=== PATIENT | male | born 1940 | race Caucasian/White ===

== ENCOUNTER 2017-10-29 19:41 | Outpatient (REF) | payer MEDICARE, SELFPAY ==
[2017-10-29 21:08] LABS: Anion Gap 5.6 mmol/L (3-11); BUN 18 mg/dL (7-18); CO2 29.4 mmol/L (21.0-32.0); CREATININE 1.28 mg/dL (0.70-1.30); Calcium 8.4 mg/dL (8.5-10.1); Chloride 105 mmol/L (98-107); Cholesterol 197 mg/dL (50-200); Estimated GFR 54.21 (mL/min/1.73m2); Glucose 95 mg/dL (70-100); HDL Cholesterol 33 mg/dL (40-60); LDL CHOLESTEROL 142 mg/dL (<100); Sodium 140 mmol/L (136-145); Triglyceride 204 mg/dL (30-150)
== END 2017-10-29 20:01 ==
LOC: NCHCN 19:41
PROVIDERS: PCP Family Medicine; Visit Provider Family Medicine
DX: E78.5 Hyperlipidemia, unspecified (principal); I10 Essential (primary) hypertension
CPT/HCPCS: 80048; 80061; 83721

== ENCOUNTER 2018-04-29 10:19 | Outpatient (REF) | payer MEDICARE, SELFPAY ==
[2018-04-29 19:25] LABS: Anion Gap 9.5 mmol/L (3-11); BUN 18 mg/dL (7-18); CO2 26.5 mmol/L (21.0-32.0); CREATININE 1.19 mg/dL (0.70-1.30); Calcium 8.9 mg/dL (8.5-10.1); Chloride 104 mmol/L (98-107); Cholesterol 208 mg/dL (50-200); Estimated GFR 58.97 (mL/min/1.73m2); Glucose 97 mg/dL (70-100); HDL Cholesterol 35 mg/dL (40-60); LDL CHOLESTEROL 148 mg/dL (<100); Potassium 4.4 mmol/L (3.5-5.1); Sodium 140 mmol/L (136-145); Triglyceride 167 mg/dL (30-150)
== END 2018-04-29 10:39 ==
LOC: NCHCN 10:19
PROVIDERS: PCP Family Medicine; Visit Provider Family Medicine
DX: E78.5 Hyperlipidemia, unspecified (principal); I10 Essential (primary) hypertension
CPT/HCPCS: 80048; 80061; 83721

== ENCOUNTER 2019-04-04 11:22 | Outpatient (REF) | payer MEDICARE, SELFPAY ==
[2019-04-04 20:52] LABS: ALT 27 U/L (16-63); AST 17 U/L (15-37); Albumin 4.2 g/dL (3.4-5.0); Alkaline Phosphatase 87 U/L (46-116); Anion Gap 10.4 mmol/L (3-11); BUN 16 mg/dL (7-18); Bilirubin, Total 0.7 mg/dL (0.2-1.0); CO2 25.6 mmol/L (21.0-32.0); CREATININE 1.14 mg/dL (0.70-1.30); Calcium 9.1 mg/dL (8.5-10.1); Calculated LDL 147 mg/dL (<100); Chloride 104 mmol/L (98-107); Cholesterol 219 mg/dL (<200); Glucose 97 mg/dL (74-106); HDL Cholesterol 34 mg/dL (40-60); Sodium 140 mmol/L (136-145); Total Protein 7.5 g/dL (6.4-8.2); Triglyceride 192 mg/dL (<150)
[2019-04-06 09:34] LABS: PSA, Screening 2.1 ng/mL (0.0-6.5)
== END 2019-04-04 11:42 ==
LOC: NCHCN 11:22
PROVIDERS: PCP Family Medicine; Visit Provider Family Medicine
DX: E78.5 Hyperlipidemia, unspecified (principal); I10 Essential (primary) hypertension; Z12.5 Encounter for screening for malignant neoplasm of prostate
CPT/HCPCS: 80053; 80061; 84153

== ENCOUNTER 2020-05-07 18:30 | Outpatient (REF) | payer MEDICARE, SELFPAY ==
[2020-05-07 19:17] LABS: HCT 42.7 % (40.0-50.0); HGB 14.5 g/dL (13.5-17.5); MCH 30.8 pg (27.0-33.0); MCV 90.7 fL (80-95); MPV 12.3 fL (8.0-11.0); Platelet Count 225 10^3/uL (130-400); RBC 4.71 10^6/uL (4.36-5.78); RDW 13.7 % (11.8-14.1); RDW-SD 45.7 fL; WBC 7.73 10^3/uL (4.4-10.8)
[2020-05-07 19:55] LABS: ALT 31 U/L (16-63); AST 20 U/L (15-37); Albumin 4.2 g/dL (3.4-5.0); Alkaline Phosphatase 76 U/L (46-116); Anion Gap 11.7 mmol/L (3-11); BUN 18 mg/dL (7-18); Bilirubin, Total 0.8 mg/dL (0.2-1.0); CO2 26.3 mmol/L (21.0-32.0); CREATININE 1.2 mg/dL (0.70-1.30); Calculated LDL 129 mg/dL (<100); Chloride 104 mmol/L (98-107); Cholesterol 200 mg/dL (<200); Estimated GFR 58.11 (mL/min/1.73m2); Glucose 83 mg/dL (74-106); HDL Cholesterol 34 mg/dL (40-60); Potassium 4.5 mmol/L (3.5-5.1); Sodium 142 mmol/L (136-145); Total Protein 7.8 g/dL (6.4-8.2); Triglyceride 186 mg/dL (<150)
[2020-05-08 18:35] LABS: PSA, Screening 3.1 ng/mL (0.0-6.5)
== END 2020-05-07 18:31 | disposition home or self-care (01) ==
LOC: NCHCN 18:30
PROVIDERS: PCP Family Medicine; Visit Provider Family Medicine
DX: I10 Essential (primary) hypertension (principal); E78.5 Hyperlipidemia, unspecified; Z12.5 Encounter for screening for malignant neoplasm of prostate
CPT/HCPCS: 80053; 80061; 84153; 85027

== ENCOUNTER 2021-05-30 11:31 | Outpatient (REF) | payer MEDICARE, SELFPAY ==
[2021-05-30 20:03] LABS: Hemoglobin A1C 5.9 % (<5.7)
[2021-05-30 20:24] LABS: ALT 23 U/L (16-63); AST 18 U/L (15-37); Albumin 4.2 g/dL (3.4-5.0); Alkaline Phosphatase 90 U/L (46-116); Anion Gap 5.2 mmol/L (3-11); BUN 22 mg/dL (7-18); Bilirubin, Total 0.7 mg/dL (0.2-1.0); CO2 29.8 mmol/L (21.0-32.0); CREATININE 1.3 mg/dL (0.70-1.30); Calcium 9.4 mg/dL (8.5-10.1); Calculated LDL 131 mg/dL (<100); Chloride 105 mmol/L (98-107); Cholesterol 201 mg/dL (<200); Estimated GFR 52.85 (mL/min/1.73m2); Glucose 107 mg/dL (74-106); HDL Cholesterol 39 mg/dL (40-60); Potassium 5.4 mmol/L (3.5-5.1); Sodium 140 mmol/L (136-145); Total Protein 7.6 g/dL (6.4-8.2); Triglyceride 157 mg/dL (<150)
[2021-05-30 21:14] LABS: Vitamin B12 323 pg/mL (193-986)
[2021-06-02 09:51] LABS: PSA, Screening 4.3 ng/mL (<=6.5)
== END 2021-05-30 11:32 | disposition home or self-care (01) ==
LOC: NCHCN 11:31
PROVIDERS: PCP Family Medicine; Visit Provider Family Medicine
DX: Z12.5 Encounter for screening for malignant neoplasm of prostate (principal); Z13.220 Encounter for screening for lipoid disorders
CPT/HCPCS: 80053; 80061; 84153; 82607; 83036; 84443

== ENCOUNTER 2021-07-23 08:51 | Outpatient (REF) | payer MEDICARE, SELFPAY ==
[2021-07-23 15:34] LABS: AST 26 U/L (15-37); Calculated LDL 59 mg/dL (<100); Cholesterol 116 mg/dL (<200); HDL Cholesterol 41 mg/dL (40-60); Triglyceride 82 mg/dL (<150)
[2021-07-23 15:51] LABS: Creatine Kinase 258 U/L (39-308)
== END 2021-07-23 08:52 | disposition home or self-care (01) ==
LOC: NCHCN 08:51
PROVIDERS: PCP Family Medicine; Visit Provider Family Medicine
DX: E78.5 Hyperlipidemia, unspecified (principal)
CPT/HCPCS: 80061; 82550; 84450

== ENCOUNTER 2021-12-15 01:39 | Outpatient (CLI) | payer MEDICARE, SELFPAY ==
--- NOTE | 2021-12-15 09:15 | DI.NM_ITS ---
APPROVED REPORT Exam: Exercise Treadmill Patient Location: Out-Patient Room/Bed: Stress Nurse: Arelis Martinez RN Ordering Provider:ADAM WHATLEY, Contact Number: [phone] BMI: 35.94 Baseline Rhythm: Sinus Rhythm Indications: EXERTIONAL CP Medical History Medical History: HTN, HLD, Obesity Cardiac Medications: Losartan, Atorvastatin Allergies: Lisinopril Cardiac Risk Factors: HTN, HTN, Obesity Previous Cardiac Procedures: None Pretest Chest Pain Characteristics: No chest pain Exercise History: Physically active Physical Disabilities: None Lung Sounds: Clear to auscultation Heart Sounds: Regular Stress Test Details Test: Exercise stress testing was performed using a Gavino protocol. Nuclear Acquisition: Rest Tc-99m/Stress Tc-99m 1 day Rest Isotope: Tc-99m Sestamibi. Dose: 11.0 Date: 12/15/2021 Injection Time: 0930 Stress Isotope: Tc-99m Sestamibi. Dose: 37.0 Date: 12/15/2021 Injection Time: 1110 HR Resting HR Supine: 60 bpm Max Heart Rate (APMHR): 137.496644 bpm Resting HR Standin bpm Target HR (85% APMHR): 116.912224 bpm Max HR Achieved: 125 bpm % of APMHR: 91.24 Recovery HR: 73 bpm HR response to stress: Normal HR response to stress BP Resting BP Supine: 178/90 mmHg Resting BP Standin/82 mmHg Max BP: 208/98 mmHg Recovery BP: 180/88 mmHg BP response to stress: Normal blood pressure response to stress. Comment: Hypertensive baseline. ECG Resting ECG: Sinus Rhythm Ectopy: occasional PVC Comment: diffuse T wave inversions, aVL upright. Stress ECG: Sinus Tachycardia ST Change: No significant ST segment changes noted Arrhythmia: occasional PVC Comment: T wave inversions now upright. Lead aVL inverted. Recovery ECG: Sinus Rhythm Recovery ST Change: Downsloping ST depression Lead(s): I, II, III, aVF, V4, V5, V6 Recovery ST Deviation: 2.5 mm Recovery Arrhythmia: occasional PVC Comment: T waves returning near baseline 15 minutes into recovery. Clinical Reason for Termination: Fatigue, Dyspnea Stress Symptoms: Dyspnea Exercise duration: 3 min00 sec Highest Stage Reached: Stage 1: 1.7 mph at 10% grade. Exercise capacity: 4.64 METs Aquino Treadmill Score: 2 Rate Pressure Product: [id number] Stress ECG Conclusion 1. Resting electrocardiogram showed ST-T abnormalities 2. Patient exercised on the Gavino protocol and completed a workload of 4.64 METS, stopping due to paul rtness of breath 3. Resting hypertension. Normal hemodynamic response to exercise. Patient achieved 91% of predicted heart rate for age 4. The electrocardiographic portion of the test was consistent with myocardial ischemia 5. There were occasional premature ventricular contractions 6. See MPI report Aquino Treadmill Score is 2 which is Moderate risk. Stress Test Summary STAGE Time (mins) Speed (mph) Grade (%) HR BP SpO2 SYMPTOMS METS Supine 60 178/90 Standing 64 180/82 1 3 1.7 10 124 96 4.5 1 min recovery 106 158/80 96 3 min recovery 72 208/98 6 min recovery 75 202/102 9 min recovery 73 200/102 12 min recovery 73 188/90 73 180/88 MPI Conclusion Myocardial perfusion is abnormal. There is an anteroapical area of ischemia, moderate in size EF 40%. [place] is hypokinetic Radiologist Interpretation Radiologist agrees with [employer] Consulting Director's Interpretation. Radiologist Interpretation by: Fabi Graf MD Interpretation Date/Time: 12/15/2021 17:01:20
== END 2021-12-15 01:59 ==
LOC: DI 01:42
PROVIDERS: PCP Family Medicine; Visit Provider Family Medicine
DX: R07.89 Other chest pain (principal)
CPT/HCPCS: 78452; 93016; 93018; 93017

== ENCOUNTER 2022-03-17 13:59 | Outpatient (RCR) | payer MEDICARE, SELFPAY | END 2022-03-17 23:59 | disposition home or self-care (01) | LOC: CR 13:59 | PROVIDERS: PCP Family Medicine; Visit Provider Internal Medicine Cardiovascular Disease ==

== ENCOUNTER 2022-05-15 10:24 | Outpatient (RCR) | payer MEDICARE, SELFPAY | END 2022-05-15 23:59 | disposition home or self-care (01) | LOC: CR 10:24 | PROVIDERS: PCP Family Medicine; Visit Provider Internal Medicine Cardiovascular Disease | DX: I25.10 Atherosclerotic heart disease of native coronary artery without angina pectoris (principal); Z95.1 Presence of aortocoronary bypass graft | CPT/HCPCS: S9472 ==

== ENCOUNTER 2022-06-02 16:58 | Outpatient (REF) | payer MEDICARE, SELFPAY ==
[2022-06-02 16:04] LABS: HCT 44.7 % (40.0-50.0); HGB 14.7 g/dL (13.5-17.5)
[2022-06-02 16:16] LABS: ALT 23 U/L (16-63); AST 17 U/L (15-37); Albumin 4.1 g/dL (3.4-5.0); Alkaline Phosphatase 92 U/L (46-116); BUN 24 mg/dL (7-18); Bilirubin, Total 0.8 mg/dL (0.2-1.0); CREATININE 1.4 mg/dL (0.70-1.30); Calcium 9.7 mg/dL (8.5-10.1); Chloride 106 mmol/L (98-107); Creatine Kinase 103 U/L (39-308); Estimated GFR 49.87 (mL/min/1.73m2); Glucose 96 mg/dL (74-106); Potassium 5.6 mmol/L (3.5-5.1); Sodium 141 mmol/L (136-145); Total Protein 7.5 g/dL (6.4-8.2)
[2022-06-02 22:46] LABS: PSA, Screening 4.5 ng/mL (<=6.5)
== END 2022-06-02 16:59 | disposition home or self-care (01) ==
LOC: NCHCN 16:58
PROVIDERS: PCP Family Medicine; Visit Provider Family Medicine
DX: R73.03 Prediabetes (principal); I10 Essential (primary) hypertension; E78.5 Hyperlipidemia, unspecified; Z95.1 Presence of aortocoronary bypass graft; Z12.5 Encounter for screening for malignant neoplasm of prostate
CPT/HCPCS: 80053; 82550; 84153; 83036; 85014; 85018

== ENCOUNTER 2022-06-12 10:47 | Outpatient (RCR) | payer MEDICARE, SELFPAY | END 2022-06-14 23:59 | disposition home or self-care (01) | LOC: CR 10:47 | PROVIDERS: PCP Family Medicine; Visit Provider Internal Medicine Cardiovascular Disease | DX: I25.10 Atherosclerotic heart disease of native coronary artery without angina pectoris (principal); Z95.1 Presence of aortocoronary bypass graft; Z51.89 Encounter for other specified aftercare | CPT/HCPCS: S9472 ==

== ENCOUNTER 2022-07-15 09:41 | Outpatient (RCR) | payer MEDICARE, SELFPAY | END 2022-07-15 23:59 | disposition home or self-care (01) | LOC: CR 09:41 | PROVIDERS: PCP Family Medicine; Visit Provider Internal Medicine Cardiovascular Disease | DX: I25.10 Atherosclerotic heart disease of native coronary artery without angina pectoris (principal); Z95.1 Presence of aortocoronary bypass graft; Z51.89 Encounter for other specified aftercare | CPT/HCPCS: S9472 ==

== ENCOUNTER 2022-08-14 11:31 | Outpatient (RCR) | payer MEDICARE, SELFPAY | END 2022-08-14 23:59 | disposition home or self-care (01) | LOC: CR 11:31 | PROVIDERS: PCP Family Medicine; Visit Provider Internal Medicine Cardiovascular Disease | DX: I25.10 Atherosclerotic heart disease of native coronary artery without angina pectoris (principal); Z51.89 Encounter for other specified aftercare; Z95.1 Presence of aortocoronary bypass graft | CPT/HCPCS: S9472 ==

== ENCOUNTER 2022-09-11 10:48 | Outpatient (RCR) | payer SELFPAY ==
[2022-08-19 14:30] VITALS: BP 176/72; PULSE 58
[2022-08-21 11:16] VITALS: BP 178/66; PULSE 60
[2022-08-28 14:18] VITALS: BP 153/63; PULSE 61
[2022-09-02 11:34] VITALS: BP 151/67; PULSE 55
[2022-09-04 11:36] VITALS: BP 161/67; PULSE 57
[2022-09-09 11:07] VITALS: BP 156/65; PULSE 54
[2022-09-11 11:33] VITALS: BP 146/69; PULSE 55
== END 2022-09-14 23:59 | disposition home or self-care (01) ==
LOC: CR 10:48
PROVIDERS: PCP Family Medicine; Visit Provider Internal Medicine Cardiovascular Disease
DX: R69 Illness, unspecified (principal)

== ENCOUNTER 2022-10-14 11:28 | Outpatient (RCR) | payer SELFPAY ==
[2022-09-15 00:08] VITALS: BP 146/69; PULSE 55
[2022-09-16 11:49] VITALS: BP 155/66; PULSE 67
[2022-09-18 14:42] VITALS: BP 167/71; PULSE 52
[2022-09-25 11:34] VITALS: BP 133/64; PULSE 51
[2022-09-30 11:00] VITALS: BP 162/70; PULSE 58
[2022-10-02 11:00] VITALS: BP 168/64; PULSE 57
[2022-10-02 11:45] VITALS: BP 130/67
[2022-10-07 15:26] VITALS: BP 145/64; PULSE 53
[2022-10-14 11:46] VITALS: BP 155/69; PULSE 57
== END 2022-10-15 23:59 | disposition home or self-care (01) ==
LOC: CR 11:28
PROVIDERS: PCP Family Medicine; Visit Provider Internal Medicine Cardiovascular Disease
DX: R69 Illness, unspecified (principal)

== ENCOUNTER 2022-11-13 11:07 | Outpatient (RCR) | payer SELFPAY ==
[2022-10-16 00:05] VITALS: BP 155/69; PULSE 57
[2022-10-16 13:49] VITALS: BP 150/69; PULSE 53
[2022-10-21 14:54] VITALS: BP 159/64; PULSE 60
[2022-10-23 11:10] VITALS: BP 156/67; PULSE 58
[2022-10-26 11:00] VITALS: BP 148/72; PULSE 56
[2022-10-28 11:56] VITALS: BP 146/64; PULSE 52
[2022-11-06 12:48] VITALS: BP 172/73; PULSE 58
[2022-11-11 11:00] VITALS: BP 165/70; PULSE 55
[2022-11-13 11:11] VITALS: BP 140/61; PULSE 54
== END 2022-11-14 23:59 | disposition home or self-care (01) ==
LOC: CR 11:07
PROVIDERS: PCP Family Medicine; Visit Provider Internal Medicine Cardiovascular Disease
DX: R69 Illness, unspecified (principal)

== ENCOUNTER 2022-11-26 11:32 | Outpatient (REF) | payer MEDICARE, SELFPAY ==
[2022-11-26 16:47] LABS: Hemoglobin A1C 5.8 % (<5.7)
[2022-11-26 17:38] LABS: ALT 26 U/L (16-63); AST 18 U/L (15-37); Albumin 3.7 g/dL (3.4-5.0); Alkaline Phosphatase 81 U/L (46-116); Anion Gap 4.6 mmol/L (3-11); BUN 16 mg/dL (7-18); Bilirubin, Total 0.6 mg/dL (0.2-1.0); CO2 28.4 mmol/L (21.0-32.0); CREATININE 1.4 mg/dL (0.70-1.30); Calcium 9.6 mg/dL (8.5-10.1); Calculated LDL 53 mg/dL (<100); Chloride 104 mmol/L (98-107); Cholesterol 117 mg/dL (<200); Estimated GFR 49.56 (mL/min/1.73m2); Glucose 104 mg/dL (74-106); HDL Cholesterol 46 mg/dL (40-60); Potassium 5.2 mmol/L (3.5-5.1); Sodium 137 mmol/L (136-145); Total Protein 7.5 g/dL (6.4-8.2); Triglyceride 91 mg/dL (<150)
== END 2022-11-26 11:33 | disposition home or self-care (01) ==
LOC: NCHCN 11:32
PROVIDERS: PCP Family Medicine; Visit Provider Family Medicine
DX: I10 Essential (primary) hypertension (principal); R73.03 Prediabetes; E78.5 Hyperlipidemia, unspecified; Z95.1 Presence of aortocoronary bypass graft
CPT/HCPCS: 80053; 80061; 83036

== ENCOUNTER 2022-12-11 11:00 | Outpatient (RCR) | payer SELFPAY ==
[2022-11-15 00:12] VITALS: BP 140/61; PULSE 54
[2022-11-20 11:13] VITALS: BP 169/78; PULSE 61
[2022-11-25 11:55] VITALS: BP 133/67; PULSE 51
[2022-11-27 11:09] VITALS: BP 136/69; PULSE 60
[2022-12-02 13:35] VITALS: BP 141/64; PULSE 53
[2022-12-04 11:32] VITALS: BP 142/64; PULSE 56
[2022-12-11 11:13] VITALS: BP 160/62; PULSE 56
== END 2022-12-15 23:59 | disposition home or self-care (01) ==
LOC: CR 11:00
PROVIDERS: PCP Family Medicine; Visit Provider Internal Medicine Cardiovascular Disease
DX: R69 Illness, unspecified (principal)

== ENCOUNTER 2023-01-06 11:00 | Outpatient (RCR) | payer SELFPAY ==
[2022-12-16 00:08] VITALS: BP 140/61; PULSE 54
[2022-12-16 11:15] VITALS: BP 163/71; PULSE 56
[2022-12-18 11:14] VITALS: BP 142/69; PULSE 53
[2022-12-23 11:09] VITALS: BP 148/74; PULSE 53
[2022-12-25 11:20] VITALS: BP 146/78; PULSE 60
[2023-01-01 11:11] VITALS: BP 175/69; PULSE 55
[2023-01-06 12:58] VITALS: BP 158/71; PULSE 63
== END 2023-01-14 23:59 | disposition home or self-care (01) ==
LOC: CR 11:00
PROVIDERS: PCP Family Medicine; Visit Provider Internal Medicine Cardiovascular Disease
DX: R69 Illness, unspecified (principal)

== ENCOUNTER 2023-02-10 11:53 | Outpatient (RCR) | payer SELFPAY ==
[2023-01-15 00:05] VITALS: BP 140/61; PULSE 54
[2023-01-22 11:10] VITALS: BP 173/71; PULSE 53
[2023-01-27 10:59] VITALS: BP 163/71; PULSE 63
[2023-01-29 11:19] VITALS: BP 151/69; PULSE 59
[2023-02-03 15:28] VITALS: BP 158/64; PULSE 65
[2023-02-10 14:29] VITALS: BP 162/73; PULSE 57
== END 2023-02-14 23:59 | disposition home or self-care (01) ==
LOC: CR 11:53
PROVIDERS: PCP Family Medicine; Visit Provider Internal Medicine Cardiovascular Disease
DX: R69 Illness, unspecified (principal)

== ENCOUNTER 2023-03-17 11:00 | Outpatient (RCR) | payer SELFPAY ==
[2023-02-15 00:04] VITALS: BP 140/61; PULSE 54
[2023-02-17 11:51] VITALS: BP 173/69; PULSE 60
[2023-02-19 14:48] VITALS: BP 139/66; PULSE 61
[2023-03-10 11:02] VITALS: BP 144/69; PULSE 57
[2023-03-12 11:05] VITALS: BP 147/58; PULSE 59
[2023-03-17 13:23] VITALS: BP 144/72; PULSE 65
== END 2023-03-17 23:59 | disposition home or self-care (01) ==
LOC: CR 11:00
PROVIDERS: PCP Family Medicine; Visit Provider Internal Medicine Interventional Cardiology
DX: R69 Illness, unspecified (principal)

== ENCOUNTER 2023-04-09 10:50 | Outpatient (RCR) | payer SELFPAY ==
[2023-03-18 00:17] VITALS: BP 140/61; PULSE 54
[2023-03-24 11:54] VITALS: BP 152/66; PULSE 57
[2023-03-26 11:04] VITALS: BP 160/63; PULSE 57
[2023-04-07 11:02] VITALS: BP 158/63; PULSE 56; O2SAT 98
[2023-04-09 12:53] VITALS: BP 116/60; PULSE 54
== END 2023-04-15 23:59 | disposition home or self-care (01) ==
LOC: CR 10:50
PROVIDERS: PCP Family Medicine; Visit Provider Internal Medicine Cardiovascular Disease
DX: I25.810 Atherosclerosis of coronary artery bypass graft(s) without angina pectoris (principal); Z51.89 Encounter for other specified aftercare

== ENCOUNTER 2023-04-18 15:04 | Emergency (ER) | payer MEDICARE, SELFPAY ==
[2023-04-18 15:11] VITALS: BP 178/66; PULSE 75; RESP 18; TEMP 36.3; O2SAT 96
--- NOTE | 2023-04-18 15:23 | ED.GENADUL_ITS ---
Discharge Plan Disposition Patient Disposition: Home Condition: Stable Discharge Details Clinical Impression: Abrasion of nose Primary Care Provider: Edel Babin V ED Provider: Donta Trujillo Home Meds and New Rx's Prescriptions: No Action rosuvastatin 5 mg tablet 5 mg PO DAILY saw palmetto 160 mg capsule 160 mg PO BID Rx Instructions: give with meal/snack cholecalciferol (vitamin D3) 1,250 mcg (50,000 unit) capsule 1,250 mcg PO QMONTH aspirin 81 mg tablet,delayed release (DR/EC) 81 mg PO DAILY losartan 50 mg tablet 50 mg PO DAILY ibuprofen 800 mg tablet 800 mg PO Q8H PRN carvedilol 6.25 mg tablet 6.25 mg PO BID Discharge Instructions Instructions: Abrasion (ED) Additional Instructions: You were seen in the emergency department for your trip and fall, you have a significant nasal abrasion, you need to dress this with 2 dressing changes daily for the first 2 days then once per day, keep the area clean and dry, use Neosporin on the wound for the first 2 to 3 days but after this please keep it clean and dry with a sterile dressing placed over the top of it. Please watch for any signs of concussion like photophobia, nausea or vomiting, neurologic abnormality, repetitive questioning, amnesia. Please return for any concerns of neurologic changes. You may have a small nasal fracture but as we discussed performing a CT scan would expose you to radiation and would likely not change treatment for a small nondisplaced nasal fracture so please keep the area still and try not to cause any more trauma to the area. Referrals: Edel Babin MD [Primary Care Provider] - Discharge Data Discharge Date/Time-TO BE ENTERED AT DEPARTURE: 04/18/23 15:43 HPI General Date/Time Provider Initiated Documentation: 04/18/23 15:16 . HPI Narrative: 82 year-old male presents to ED today by POV/ambulating with his daughter with a chief complaint of trip & fall, injury to nose with onset just prior to arrival. Quality described as abrasion to nose- no significant pain at this time, no radiation to LOC, headstrike, orbital pain, visual changes, palpitations prior to onset, other bodily trauma. Severity is described as minor. Palliating factors include nothing specific. Provoking factors include nothing specific. Patient not anticoagulated. Related Data Home Medications Medication Instructions Recorded Confirmed ibuprofen 800 mg tablet 800 mg PO Q8H PRN 12/11/20 04/18/23 losartan 50 mg tablet 50 mg PO DAILY 12/11/20 04/18/23 cholecalciferol (vitamin D3) 1,250 1,250 mcg PO QMONTH 12/30/21 04/18/23 mcg (50,000 unit) capsule rosuvastatin 5 mg tablet 5 mg PO DAILY 12/30/21 04/18/23 saw palmetto 160 mg capsule 160 mg PO BID 12/30/21 04/18/23 aspirin 81 mg tablet,delayed 81 mg PO DAILY 01/05/23 04/18/23 release carvedilol 6.25 mg tablet 6.25 mg PO BID 04/18/23 04/18/23 Allergies Allergy/AdvReac Type Severity Reaction Status Date / Time lisinopril Allergy Cough Verified 04/18/23 15:15 General Stated Complaint: Fall/Non TraumaCriteria DELON: 3 Review of Systems All systems reviewed & are unremarkable except as noted in HPI and below Exam Narrative Exam Narrative: GENERAL APPEARANCE: Well-nourished, non-toxic, awake and alert, atraumatic, no acute distress. SKIN: Warm, pink, dry, intact, without rashes/lesions/ulcerations. HEAD: Normocephalic, minor irregular abrasion not apt to suture at the nasal bridge without crepitus, scant bleeding, no gross contamination, orbits stable, no Diane's sign, no periorbital ecchymosis, no dental trauma, normal hair distribution for gender/age. EYES: Pupils PERRLA, EOMs intact without nystagmus, normal conjunctiva, no exudates on lids/lashes. ENT: Nares patent, no circumoral cyanosis, no facial swelling NECK: Supple, trachea midline, painless cervical ROM. LUNGS/CHEST: Non-labored respirations, normal A/P diameter, symmetrical expan bonita, no chest wall deformity HEART (CV/PV): No peripheral edema, no JVD. ABDOMEN: Soft, non-distended, no guarding. MSK: Normal ROM, no swelling/deformity to bilateral UEs or LEs, moving all extremities without weakness, no cyanosis, spine midline without tenderness, normal curvature. NEURO: Mental Status AAOx4 - alert to person, place, time, events No facial droop, no forehead involvement. Motor: No focal weakness - strength 5/5 in bilateral UEs and LEs, proximal and distal, symmetric. Sensory: sensation intact to light touch globally. Gait normal: patient ambulated without ataxia into ED room. PSYCH: euthymic, cooperative, pleasant, appropriate speech Course Vital Signs Vital signs: Vital Signs Temperature 36.3 C L 04/18/23 15:11 Pulse 75 04/18/23 15:11 Respiratory Rate 18 04/18/23 15:11 Blood Pressure 178/66 H 04/18/23 15:11 Pulse Oximetry 96 04/18/23 15:11 Temperature 36.3 C L 04/18/23 15:11 Temperature Source Skin 04/18/23 15:11 Pulse 75 04/18/23 15:11 Respiratory Rate 18 04/18/23 15:11 Respiratory Effort Normal, Non-Labored 04/18/23 15:14 Blood Pressure 178/66 H 04/18/23 15:11 Blood Pressure Position Sitting 04/18/23 15:11 Pulse Oximetry 96 04/18/23 15:11 Oxygen Delivery Method Room Air 04/18/23 15:11 Oxygen Flow Rate 0 04/18/23 15:11 Pain Level 0 04/18/23 15:11 Medical Decision Making This dictation utilizes [id number] dictation software and may contain unedited grammatical errors. 82 y/o M presents to ED today with a chief complaint of fall with abrasion to nose- denies significant headstrike/LOC, no post-event vomiting or repetitive questioning. Patient states no significant nose pain- no orbital pain, no visual changes. 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 Family and social history: noncontributory. Pertinent exam findings / vital signs include HEAD: Normocephalic, minor irregular abrasion not apt to suture at the nasal bridge without crepitus, scant bleeding, no gross contamination, orbits stable, no Diane's sign, no periorbital ecchymosis, no dental trauma, normal hair distribution for gender/age.. Differential / pathologies of concern include concussion syndrome, nasal fracture, abrasion, not suitable for suture repair- irregular. Diagnostic studies of: -none, discussed the possibility of CT head and facial bones but without significant pain on palpation to the nasal bridge I do not suspect anything more than a possible very minor nondisplaced nasal fracture and this would not change treatment, the patient was comfortable with no CTs performed. Interventions of: -Wound was cleaned and dressed with bacitracin and nonstick dressing, recommend simple wound care. ED Course/Assessment/Plan: 82-year-old male tripped and fell, no significant head injury, denies DAPT and blood thinners, denies postevent nausea or amnesia, has a significant abrasion to the bridge of the nose without crepitus, nares are patent, there is no part of the wound that can be brought together with sutures needs to heal by secondary intent, you have stressed with bacitracin and padded nasal dressing and recommend strict return criteria for any abnormalities of neurologic condition. Findings not consistent with concussion syndrome, ICH, displaced nasal fracture. Disposition of abrasion of nose. Patient verbalized understanding of the plan and return to ED criteria and engaged in shared decision making. Medical Records Medical records reviewed: Yes I reviewed the patient's medical records. 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
[2023-04-18 15:43] VITALS: RESP 18
== END 2023-04-18 15:43 | disposition home or self-care (01) ==
PROVIDERS: Emergency Provider Physician Assistant; PCP Family Medicine
DX: S00.31XA Abrasion of nose, initial encounter (principal); Z86.79 Personal history of other diseases of the circulatory system; W10.8XXA Fall (on) (from) other stairs and steps, initial encounter
CPT/HCPCS: 99282; 99283

== ENCOUNTER 2023-05-14 10:41 | Outpatient (RCR) | payer SELFPAY ==
[2023-04-16 00:21] VITALS: BP 140/61; PULSE 54
[2023-04-16 11:49] VITALS: BP 146/64; PULSE 56
[2023-04-21 11:27] VITALS: BP 152/61; PULSE 58
[2023-04-23 11:34] VITALS: BP 142/69; PULSE 58
[2023-04-28 15:16] VITALS: BP 159/64; PULSE 54
[2023-04-30 11:00] VITALS: BP 135/64; PULSE 69; O2SAT 95
[2023-05-05 15:52] VITALS: BP 152/69; PULSE 61
[2023-05-12 12:35] VITALS: BP 154/70; PULSE 55
[2023-05-14 11:00] VITALS: BP 133/63; PULSE 50
== END 2023-05-16 23:59 | disposition home or self-care (01) ==
LOC: CR 10:41
PROVIDERS: PCP Family Medicine; Visit Provider Internal Medicine Cardiovascular Disease
DX: R69 Illness, unspecified (principal)

== ENCOUNTER 2023-06-08 14:41 | Outpatient (REF) | payer MEDICARE, SELFPAY ==
[2023-06-08 15:49] LABS: Hemoglobin A1C 5.9 % (<5.7)
[2023-06-08 15:54] LABS: ALT 27 U/L (16-63); AST 20 U/L (15-37); Albumin 4.1 g/dL (3.4-5.0); Alkaline Phosphatase 68 U/L (46-116); Anion Gap 8.7 mmol/L (3-11); BUN 13 mg/dL (7-18); Bilirubin, Total 0.8 mg/dL (0.2-1.0); CO2 28.3 mmol/L (21.0-32.0); CREATININE 1.4 mg/dL (0.70-1.30); Calcium 9.2 mg/dL (8.5-10.1); Chloride 107 mmol/L (98-107); Estimated GFR 49.56 (mL/min/1.73m2); Glucose 107 mg/dL (74-106); Sodium 144 mmol/L (136-145); Total Protein 7.5 g/dL (6.4-8.2)
[2023-06-08 23:09] LABS: PSA, Screening 7.7 ng/mL (<=6.5)
== END 2023-06-08 14:42 | disposition home or self-care (01) ==
LOC: NCHCN 14:41
PROVIDERS: PCP Family Medicine; Visit Provider Family Medicine
DX: I10 Essential (primary) hypertension (principal); R73.03 Prediabetes; Z12.5 Encounter for screening for malignant neoplasm of prostate; R97.20 Elevated prostate specific antigen [PSA]
CPT/HCPCS: 80053; 84153; 83036

== ENCOUNTER 2023-06-11 11:10 | Outpatient (RCR) | payer SELFPAY ==
[2023-05-19 12:44] VITALS: BP 157/67; PULSE 54
[2023-05-21 11:20] VITALS: BP 152/63; PULSE 59
[2023-05-26 11:13] VITALS: BP 130/64; PULSE 55; O2SAT 95
[2023-05-28 11:25] VITALS: BP 130/67; PULSE 60
[2023-06-02 11:16] VITALS: BP 145/60; PULSE 52
[2023-06-04 12:32] VITALS: BP 144/56; PULSE 56
[2023-06-09 15:26] VITALS: BP 153/73; PULSE 51
[2023-06-11 11:00] VITALS: BP 156/62; PULSE 56
== END 2023-06-15 23:59 | disposition home or self-care (01) ==
LOC: CR 11:10
PROVIDERS: PCP Family Medicine; Visit Provider Internal Medicine Cardiovascular Disease
DX: R69 Illness, unspecified (principal)

== ENCOUNTER 2023-07-14 11:00 | Outpatient (RCR) | payer SELFPAY ==
[2023-06-18 15:04] VITALS: BP 139/62; PULSE 52
[2023-06-30 13:01] VITALS: BP 138/63; PULSE 59
[2023-07-02 11:30] VITALS: BP 149/61; PULSE 61
[2023-07-07 13:29] VITALS: BP 124/62; PULSE 54
[2023-07-09 11:00] VITALS: BP 133/58; PULSE 58
== END 2023-07-16 23:59 | disposition home or self-care (01) ==
LOC: CR 11:00
PROVIDERS: PCP Family Medicine; Visit Provider Internal Medicine Cardiovascular Disease
DX: R69 Illness, unspecified (principal)

== ENCOUNTER 2023-08-13 11:00 | Outpatient (RCR) | payer SELFPAY ==
[2023-07-21 16:18] VITALS: BP 137/63; PULSE 56
[2023-07-23 12:31] VITALS: BP 130/61; PULSE 57
[2023-07-28 11:24] VITALS: BP 148/65; PULSE 57
[2023-07-30 11:30] VITALS: BP 135/60; PULSE 55
[2023-08-04 13:50] VITALS: BP 147/64; PULSE 58
[2023-08-06 11:58] VITALS: BP 137/68; PULSE 56
== END 2023-08-15 23:59 | disposition home or self-care (01) ==
LOC: CR 11:00
PROVIDERS: PCP Family Medicine; Visit Provider Internal Medicine Cardiovascular Disease
DX: R69 Illness, unspecified (principal)

== ENCOUNTER 2023-09-08 11:06 | Outpatient (RCR) | payer SELFPAY ==
[2023-08-18 11:16] VITALS: BP 140/65; PULSE 61
[2023-08-20 11:00] VITALS: BP 129/63; PULSE 54
[2023-08-25 14:50] VITALS: BP 134/58; PULSE 57
[2023-09-01 15:41] VITALS: BP 165/68
[2023-09-03 11:18] VITALS: BP 140/67; PULSE 55
[2023-09-08 11:35] VITALS: BP 118/56; PULSE 57
== END 2023-09-15 23:59 | disposition home or self-care (01) ==
LOC: CR 11:06
PROVIDERS: PCP Family Medicine; Visit Provider Internal Medicine Cardiovascular Disease
DX: R69 Illness, unspecified (principal)

== ENCOUNTER 2023-09-23 22:05 | Outpatient (REF) | payer MEDICARE, SELFPAY ==
[2023-09-24 19:36] LABS: PSA, Diagnostic 7.5 ng/mL (<=6.5)
== END 2023-09-23 22:06 | disposition home or self-care (01) ==
LOC: NCHCN 22:05
PROVIDERS: PCP Family Medicine; Visit Provider Family Medicine
DX: R97.20 Elevated prostate specific antigen [PSA] (principal)
CPT/HCPCS: 84153

== ENCOUNTER 2023-10-01 11:00 | Outpatient (RCR) | payer SELFPAY ==
[2023-09-16 00:34] VITALS: BP 118/56; PULSE 57
[2023-09-22 11:23] VITALS: BP 148/67; PULSE 54
[2023-09-29 12:55] VITALS: BP 161/70; PULSE 55
[2023-10-01 12:54] VITALS: BP 152/69; PULSE 55
== END 2023-10-16 23:59 | disposition home or self-care (01) ==
LOC: CR 11:00
PROVIDERS: PCP Family Medicine; Visit Provider Internal Medicine Cardiovascular Disease
DX: R69 Illness, unspecified (principal)

== ENCOUNTER 2023-11-12 13:06 | Outpatient (RCR) | payer SELFPAY ==
[2023-10-17 00:32] VITALS: BP 118/56; PULSE 57
[2023-10-22 11:03] VITALS: BP 142/59; PULSE 62; O2SAT 95
[2023-10-27 10:54] VITALS: BP 158/72; PULSE 60
[2023-10-27 11:00] VITALS: BP 154/61
[2023-10-29 11:12] VITALS: BP 125/56; PULSE 58
[2023-11-03 12:54] VITALS: BP 152/77; PULSE 64
[2023-11-05 11:05] VITALS: BP 135/61; PULSE 58
[2023-11-10 11:45] VITALS: BP 141/59; PULSE 62
[2023-11-12 14:51] VITALS: BP 141/65; PULSE 58
== END 2023-11-15 23:59 | disposition home or self-care (01) ==
LOC: CR 13:06
PROVIDERS: PCP Family Medicine; Visit Provider Internal Medicine Cardiovascular Disease
DX: R69 Illness, unspecified (principal)

== ENCOUNTER 2023-12-15 11:11 | Outpatient (RCR) | payer SELFPAY ==
[2023-11-19 11:05] VITALS: BP 151/64; PULSE 58
[2023-12-01 14:11] VITALS: BP 136/63; PULSE 56
[2023-12-03 13:02] VITALS: BP 144/82; PULSE 61
[2023-12-08 11:05] VITALS: BP 144/63; PULSE 55; O2SAT 97
[2023-12-15 11:25] VITALS: BP 151/62; PULSE 55
== END 2023-12-16 23:59 | disposition home or self-care (01) ==
LOC: CR 11:11
PROVIDERS: PCP Family Medicine; Visit Provider Internal Medicine Cardiovascular Disease
DX: R69 Illness, unspecified (principal)

== ENCOUNTER 2024-01-12 11:16 | Outpatient (RCR) | payer SELFPAY ==
[2023-12-17 11:15] VITALS: BP 118/58; PULSE 54
[2023-12-24 11:06] VITALS: BP 148/67; PULSE 55
[2023-12-29 11:23] VITALS: BP 152/68; PULSE 59; O2SAT 96
[2024-01-05 11:28] VITALS: BP 142/64; PULSE 57
[2024-01-12 11:10] VITALS: BP 149/66; PULSE 65; O2SAT 93
== END 2024-01-15 23:59 | disposition home or self-care (01) ==
LOC: CR 11:16
PROVIDERS: PCP Family Medicine; Visit Provider Internal Medicine Cardiovascular Disease
DX: R69 Illness, unspecified (principal)

== ENCOUNTER 2024-01-28 11:21 | Outpatient (RCR) | payer SELFPAY ==
[2024-01-16 00:32] VITALS: BP 149/66; PULSE 65
[2024-01-19 11:25] VITALS: BP 156/62; PULSE 56
[2024-01-21 11:06] VITALS: BP 146/66; PULSE 56; O2SAT 97
[2024-01-26 11:41] VITALS: BP 148/68; PULSE 56
[2024-01-28 11:18] VITALS: BP 136/65; PULSE 56
== END 2024-02-15 23:59 | disposition home or self-care (01) ==
LOC: CR 11:21
PROVIDERS: PCP Family Medicine; Visit Provider Internal Medicine Cardiovascular Disease
DX: R69 Illness, unspecified (principal)

== ENCOUNTER 2024-03-07 12:35 | Outpatient (REF) | payer MEDICARE, SELFPAY ==
[2024-03-07 16:18] LABS: HCT 42.1 % (40.0-50.0)
[2024-03-07 16:35] LABS: Hemoglobin A1C 5.9 % (<5.7)
[2024-03-07 16:50] LABS: ALT 17 U/L (16-63); AST 18 U/L (15-37); Alkaline Phosphatase 73 U/L (46-116); Anion Gap 7.8 mmol/L (3-11); BUN 18 mg/dL (7-18); Bilirubin, Total 0.55 mg/dL (0.2-1.0); CO2 28.2 mmol/L (21.0-32.0); CREATININE 1.3 mg/dL (0.70-1.30); Calcium 9.6 mg/dL (8.5-10.1); Chloride 105 mmol/L (98-107); Estimated GFR 53.84 (mL/min/1.73m2); Glucose 102 mg/dL (74-106); Potassium 4.9 mmol/L (3.5-5.1); Sodium 141 mmol/L (136-145); TSH 1.37 uIU/mL (0.36-3.74); Total Protein 7.2 g/dL (6.4-8.2)
[2024-03-07 23:14] LABS: PSA, Diagnostic 8.9 ng/mL (<=6.5)
== END 2024-03-07 12:36 | disposition home or self-care (01) ==
LOC: NCHCN 12:35
PROVIDERS: PCP Family Medicine; Visit Provider Family Medicine
DX: R73.03 Prediabetes (principal); I10 Essential (primary) hypertension
CPT/HCPCS: 80053; 83036; 84153; 84443; 85014; 85018

== ENCOUNTER → 2024-03-13 12:47 | Outpatient (BNVA) | payer MEDICARE, SELFPAY | PROVIDERS: PCP Family Medicine; Referring Provider Family Medicine; Visit Provider Urology | DX: R35.1 Nocturia (principal); R97.20 Elevated prostate specific antigen [PSA] | CPT/HCPCS: 99215 ==

== ENCOUNTER 2024-03-15 11:15 | Outpatient (RCR) | payer SELFPAY ==
[2024-03-15 11:35] VITALS: BP 134/67; PULSE 62
== END 2024-03-17 23:59 | disposition home or self-care (01) ==
LOC: CR 11:15
PROVIDERS: PCP Family Medicine; Visit Provider Internal Medicine Cardiovascular Disease
DX: R69 Illness, unspecified (principal)

== ENCOUNTER 2024-04-12 11:10 | Outpatient (RCR) | payer SELFPAY ==
[2024-03-22 11:32] VITALS: BP 165/71; PULSE 53
[2024-03-29 11:43] VITALS: BP 141/62; PULSE 64
[2024-04-05 12:17] VITALS: BP 142/67; PULSE 60
[2024-04-07 11:08] VITALS: BP 134/66; PULSE 58
[2024-04-12 12:25] VITALS: BP 144/65; PULSE 58
== END 2024-04-14 23:59 | disposition home or self-care (01) ==
LOC: CR 11:10
PROVIDERS: PCP Family Medicine; Visit Provider Internal Medicine Cardiovascular Disease
DX: R69 Illness, unspecified (principal)

== ENCOUNTER 2024-05-12 11:17 | Outpatient (RCR) | payer SELFPAY ==
[2024-04-15 00:21] VITALS: BP 144/65; PULSE 58
[2024-04-19 11:29] VITALS: BP 151/65; PULSE 59; O2SAT 95
[2024-04-21 11:08] VITALS: BP 136/66; PULSE 58
[2024-05-03 11:17] VITALS: BP 145/63; PULSE 54
[2024-05-05 14:59] VITALS: BP 132/61; PULSE 56
[2024-05-12 11:28] VITALS: BP 132/61; PULSE 58
== END 2024-05-15 23:59 | disposition home or self-care (01) ==
LOC: CR 11:17
PROVIDERS: PCP Family Medicine; Visit Provider Internal Medicine Cardiovascular Disease
DX: R69 Illness, unspecified (principal)

== ENCOUNTER 2024-06-09 11:04 | Outpatient (RCR) | payer SELFPAY ==
[2024-05-16 00:20] VITALS: BP 144/65; PULSE 58
[2024-05-17 11:18] VITALS: BP 138/61; PULSE 52
[2024-05-19 12:23] VITALS: BP 134/66; PULSE 56
[2024-05-24 11:14] VITALS: BP 136/62; PULSE 51
[2024-05-26 11:00] VITALS: BP 159/62; PULSE 51
[2024-05-31 11:33] VITALS: BP 146/60; PULSE 52
[2024-06-07 11:26] VITALS: BP 156/72; PULSE 54
[2024-06-09 11:10] VITALS: BP 147/69; PULSE 57
[2024-06-14 11:54] VITALS: BP 145/60; PULSE 55
== END 2024-06-14 23:59 | disposition home or self-care (01) ==
LOC: CR 11:04
PROVIDERS: PCP Family Medicine; Visit Provider Internal Medicine Cardiovascular Disease
DX: R69 Illness, unspecified (principal)

== ENCOUNTER 2024-06-14 22:04 | Outpatient (REF) | payer MEDICARE, SELFPAY | END 2024-06-14 22:05 | disposition home or self-care (01) | LOC: NCHCN 22:04 | PROVIDERS: PCP Family Medicine; Visit Provider Family Medicine | DX: R97.20 Elevated prostate specific antigen [PSA] (principal) | CPT/HCPCS: 84154 ==

== ENCOUNTER → 2024-07-11 10:43 | Outpatient (BNVA) | payer MEDICARE, SELFPAY | PROVIDERS: PCP Family Medicine; Referring Provider Family Medicine; Visit Provider Urology | DX: R97.20 Elevated prostate specific antigen [PSA] (principal) | CPT/HCPCS: 99213 ==

== ENCOUNTER 2024-07-14 12:51 | Outpatient (RCR) | payer SELFPAY ==
[2024-06-15 00:21] VITALS: BP 144/65; PULSE 58
[2024-06-21 11:14] VITALS: BP 153/69; PULSE 56
[2024-06-23 11:14] VITALS: BP 150/63; PULSE 59
[2024-06-28 11:36] VITALS: BP 133/68; PULSE 58
[2024-06-30 11:14] VITALS: BP 127/62; PULSE 59
[2024-07-07 12:04] VITALS: BP 141/62; PULSE 58
[2024-07-14 13:50] VITALS: BP 122/63; PULSE 55
== END 2024-07-15 23:59 | disposition home or self-care (01) ==
LOC: CR 12:51
PROVIDERS: PCP Family Medicine; Visit Provider Internal Medicine Cardiovascular Disease
DX: R69 Illness, unspecified (principal)

== ENCOUNTER → 2024-08-08 14:47 | Outpatient (BNVA) | payer MEDICARE, SELFPAY | PROVIDERS: PCP Family Medicine; Referring Provider Family Medicine; Visit Provider Urology | DX: C61 Malignant neoplasm of prostate (principal) | CPT/HCPCS: 55700; 76872 ==

== ENCOUNTER 2024-08-11 11:00 | Outpatient (RCR) | payer SELFPAY ==
[2024-07-16 00:23] VITALS: BP 144/65; PULSE 58
[2024-07-19 11:25] VITALS: BP 142/67; PULSE 53
[2024-07-21 11:23] VITALS: BP 150/69; PULSE 60
[2024-07-26 11:08] VITALS: BP 144/66; PULSE 50
[2024-08-02 11:53] VITALS: BP 152/65; PULSE 54
[2024-08-04 11:28] VITALS: BP 140/64; PULSE 54
[2024-08-09 11:10] VITALS: BP 152/67; PULSE 52
[2024-08-11 11:22] VITALS: BP 158/63; PULSE 51
== END 2024-08-14 23:59 | disposition home or self-care (01) ==
LOC: CR 11:00
PROVIDERS: PCP Family Medicine; Visit Provider Internal Medicine Cardiovascular Disease
DX: R69 Illness, unspecified (principal)

== ENCOUNTER 2024-08-17 13:24 | Outpatient (REF) | payer MEDICARE, SELFPAY ==
--- NOTE | 2024-08-17 13:20 | PROST_PTH ---
PATIENT: Curtis Lee LOC: [facility] U#:[id number] AGE/SX: 83/M ROOM: RE08/17/[address]: Gilles Muñoz MD : 1940 BED: DIS: 08/17/2024 SPEC #: [id number] RECD: 08/17/24 15:25 STATUS: MERARY GIORDANO #: [id number] PARRISH: 08/17/24 13:[address]: Gilles Muñoz DEPT: Surgical Specimen RECD BY: Dorys Mckenna ENTERED: 08/17/24 15:27 SP TYPE: PROST OTHR DR: Edel Babin V Tissues: 1 - PROSTATE NEEDLE BIOPSY 2 - PROSTATE NEEDLE BIOPSY 3 - PROSTATE NEEDLE BIOPSY 4 - PROSTATE NEEDLE BIOPSY 5 - PROSTATE NEEDLE BIOPSY 6 - PROSTATE NEEDLE BIOPSY 7 - PROSTATE NEEDLE BIOPSY 8 - PROSTATE NEEDLE BIOPSY 9 - PROSTATE NEEDLE BIOPSY 10 - PROSTATE NEEDLE BIOPSY 11 - PROSTATE NEEDLE BIOPSY 12 - PROSTATE NEEDLE BIOPSY Procedures: GROSS AND MICRO LEVEL 4 Comments: [id number]
== END 2024-08-17 13:25 | disposition home or self-care (01) ==
LOC: LBN 13:24
PROVIDERS: PCP Family Medicine; Visit Provider Urology
DX: C61 Malignant neoplasm of prostate (principal); R97.20 Elevated prostate specific antigen [PSA]
CPT/HCPCS: 88305

== ENCOUNTER → 2024-09-01 11:55 | Outpatient (BNVA) | payer MEDICARE, SELFPAY | PROVIDERS: PCP Family Medicine; Referring Provider Family Medicine; Visit Provider Urology | DX: C61 Malignant neoplasm of prostate (principal) | CPT/HCPCS: 99215 ==

== ENCOUNTER 2024-09-13 11:00 | Outpatient (RCR) | payer SELFPAY ==
[2024-08-16 11:15] VITALS: BP 138/62; PULSE 54
[2024-08-23 15:17] VITALS: BP 111/62; PULSE 58
[2024-08-25 11:30] VITALS: BP 145/63; PULSE 53
[2024-08-30 11:11] VITALS: BP 154/60; PULSE 54
[2024-09-06 11:21] VITALS: BP 145/63; PULSE 53
[2024-09-08 11:38] VITALS: BP 145/58; PULSE 59
[2024-09-13 12:57] VITALS: BP 157/63; PULSE 56
== END 2024-09-14 23:59 | disposition home or self-care (01) ==
LOC: CR 11:00
PROVIDERS: PCP Family Medicine; Visit Provider Internal Medicine Cardiovascular Disease
DX: R69 Illness, unspecified (principal)

== ENCOUNTER 2024-10-13 11:00 | Outpatient (RCR) | payer SELFPAY ==
[2024-09-15 00:24] VITALS: BP 157/63; PULSE 56
[2024-09-15 11:23] VITALS: BP 137/58; PULSE 52
[2024-09-20 12:14] VITALS: BP 138/60; PULSE 52
[2024-09-22 10:55] VITALS: BP 144/61; PULSE 53; O2SAT 96
[2024-09-27 11:21] VITALS: BP 112/54; PULSE 58
[2024-10-04 11:38] VITALS: BP 144/65; PULSE 56
[2024-10-13 11:52] VITALS: BP 133/55; PULSE 56
== END 2024-10-15 23:59 | disposition home or self-care (01) ==
LOC: CR 11:00
PROVIDERS: PCP Family Medicine; Visit Provider Internal Medicine Cardiovascular Disease
DX: R69 Illness, unspecified (principal)

== ENCOUNTER → 2024-10-20 14:55 | Outpatient (BNVA) | payer MEDICARE, SELFPAY | PROVIDERS: PCP Family Medicine; Referring Provider Family Medicine; Visit Provider Urology | DX: C61 Malignant neoplasm of prostate (principal) | CPT/HCPCS: 99214 ==

== ENCOUNTER 2024-12-15 11:00 | Outpatient (RCR) | payer SELFPAY ==
[2024-11-15 11:15] VITALS: BP 156/64; PULSE 56
[2024-11-17 11:17] VITALS: BP 148/63; PULSE 60
[2024-11-22 11:35] VITALS: BP 153/68; PULSE 56
[2024-11-24 11:30] VITALS: BP 172/64; PULSE 61; O2SAT 95
[2024-12-01 12:51] VITALS: BP 132/61; PULSE 61
[2024-12-08 11:00] VITALS: BP 109/54; PULSE 61; O2SAT 95
[2024-12-15 11:00] VITALS: BP 170/69; PULSE 59
== END 2024-12-15 23:59 | disposition home or self-care (01) ==
LOC: CR 11:00
PROVIDERS: PCP Family Medicine; Visit Provider Internal Medicine Cardiovascular Disease
DX: R69 Illness, unspecified (principal)

== ENCOUNTER 2025-01-05 11:00 | Outpatient (RCR) | payer SELFPAY ==
[2024-12-22 11:05] VITALS: BP 145/59; PULSE 55
[2024-12-29 11:10] VITALS: BP 155/62; PULSE 63; O2SAT 98
[2025-01-05 11:10] VITALS: BP 185/72; PULSE 70; O2SAT 92
[2025-01-05 11:33] VITALS: BP 175/72
[2025-01-05 11:59] VITALS: BP 163/71
== END 2025-01-14 23:59 | disposition home or self-care (01) ==
LOC: CR 11:00
PROVIDERS: PCP Family Medicine; Visit Provider Internal Medicine Cardiovascular Disease
DX: R69 Illness, unspecified (principal)